=== PATIENT | female | born 1985 | race Caucasian/White ===

== ENCOUNTER 2021-06-03 21:47 | Emergency (ER) | payer MEDICAID, SELFPAY ==
[2021-06-03 21:47] VITALS: BP 142/86; PULSE 85; RESP 16; TEMP 36.2; O2SAT 100; BMI 39.6
--- NOTE | 2021-06-03 22:02 | ED.VIS.LOWEX ---
HPI History of Present Illness Chief Complaint: Lower Extremity Injury Informant: patient Narrative Narrative: Patient had a mechanical trip and fall yesterday. Her known left knee has been sore since. She is able to walk on it. Bending it and pressing makes it worse and rest makes it better. She denies any other injury. No injury to the ankle or hip area. She did not hit her head or lose consciousness. She is not on any anticoagulation. [facility] Medical History Anxiety Home Medications buspirone [BuSpar] 15 mg PO BID 06/03/21 [History Last Taken Unknown] cetirizine [Zyrtec] 10 mg PO DAILY 06/03/21 [History Last Taken Unknown] ferrous gluconate 324 mg PO BID 06/03/21 [History Last Taken Unknown] bm-mm-ughn-FA-Ca carb-vit K [Women's Multivitamin] 1 tab PO DAILY 06/03/21 [History Last Taken Unknown] sertraline [Zoloft] 200 mg PO DAILY 06/03/21 [History Last Taken Unknown] Allergy/AdvReac Type Severity Reaction Status Date / Time aspirin Allergy NEEDS Verified 06/03/21 21:49 FOLLOW-UP Penicillins [PCN] Allergy NEEDS Verified 06/03/21 21:49 FOLLOW-UP Sulfa (Sulfonamide Allergy NEEDS Verified 06/03/21 21:49 Antibiotics) FOLLOW-UP Social History Smoking Status: Never smoker [facility] ED Gastrointestinal Gastrointestinal: Denies nausea or vomiting Musculoskeletal Musculoskeletal: Reports other Details: See history of present illness ; Denies back pain or neck pain Integumentary Reports Abrasions and other Details: Very slight abrasion to the skin on the left anterior knee. Neurologic Neurologic: Denies headache(s), paresthesias or weakness Hematologic/Lymphatic Hematologic/Lymphatic: Denies easy bleeding or easy bruising EXAM Physical Exam Const Vital Signs: 06/03/21 21:47 Temperature 97.2 F L Temperature Source Temporal Pulse Rate 85 Respiratory Rate 16 Blood Pressure 142/86 H Blood Pressure Mean 104 Pulse Ox 100 Oxygen Delivery Method Room Air Patient sitting quietly on the bed. She looks comfortable. Positive well nourished, well developed and obese General Appearance ED: well developed and NAD Nutritional Appearance: obese HEENT normocephalic and atraumatic Extremity Extremity Narrative: Slight superficial abrasion to the skin in the left anterior knee. There is no effusion. Extensor mechanism is intact. No tenderness of the foot ankle or lower leg. She does have some mild tenderness mostly abdomen just above the patella. No significant medial or lateral joint line tenderness. Flexion causes some discomfort but she is able to flex up to at least 90 degrees. Extension is normal. No tenderness higher up the left thigh or hip. Neuro Sensorium / Orientation: alert; Negative for confused or lethargic Psych mental status grossly normal Skin Skin Narrative: Slight abrasion to the left anterior knee. MDM MDM MDM Narrative Medical decision making narrative: 4 view x-ray of the patient's left knee read by me at 2220 shows no sign of acute fracture. No notable effusion. There is a fabella which is a chronic finding. There is mild subchondral sclerosis mostly of the medial compartment indicative of some early arthritis. Patient will use rest ice elevation. [id number] meds are appropriate. Discharge Plan Triage Chief Complaint: Lower Extremity Injury ED Provider: Ambrosio Robison Dx/Rx/DC Orders Clinical Impression: Fall from slipping, Contusion of left knee, Abrasion of left knee Instructions: ED Knee Sprain Prescriptions: No Action sertraline [Zoloft] 100 mg Tablet 200 mg PO DAILY RF: 0 buspirone [BuSpar] 15 mg Tablet 15 mg PO BID RF: 0 ferrous gluconate 324 mg (36 mg iron) Tablet 324 mg PO BID RF: 0 Zyrtec 10 mg Capsule 10 mg PO DAILY RF: 0 Women's Multivitamin 18 mg iron-400 mcg-500 mg Tablet 1 tab PO DAILY RF: 0 Primary Care Provider: Jessica Singh NP Referrals: Jessica Singh NP, TEACHER OF [employer]IRED-[employer] [Primary Care Provider] - 1 Week if not improving Disposition Disposition: Home, Self Care
--- NOTE | 2021-06-03 22:10 | RAD_ITS ---
STUDY: X-RAY - LEFT KNEE REASON FOR EXAM: Female, 35 years old. Pain after trauma. TECHNIQUE: 3 view(s) of the knee. COMPARISON: None. FINDINGS: No visible fracture. No osseous destruction. Alignment anatomic. No significant degenerative changes. Soft tissues unremarkable. RAD/Knee 4 or More Views IMPRESSION: No acute osseous abnormality. Electronically Signed: Jaxon Bailey MD at 0:30 EST Tel , Service support ,
== END 2021-06-03 22:49 | disposition home or self-care (01) ==
PROVIDERS: Emergency Provider Emergency Medicine; PCP Registered Nurse
DX: S80.02XA Contusion of left knee, initial encounter (principal); W01.0XXA Fall on same level from slipping, tripping and stumbling without subsequent striking against object, initial encounter; Y93.9 Activity, unspecified; Y92.9 Unspecified place or not applicable; Y99.9 Unspecified external cause status; F41.9 Anxiety disorder, unspecified; E66.9 Obesity, unspecified; Z79.899 Other long term (current) drug therapy
CPT/HCPCS: 73564; 99282

== ENCOUNTER 2021-12-18 20:01 | Emergency (ER) | payer MEDICAID, SELFPAY ==
[2021-12-18 20:02] VITALS: BP 125/80; PULSE 94; RESP 18; TEMP 36.5; O2SAT 95; BMI 39.2
--- NOTE | 2021-12-18 20:12 | EDS_ITS ---
HPI History of Present Illness Chief Complaint: Sore Throat Informant: patient Onset/Context/Timing Onset: Yesterday Context: Gradual Onset Current Severity: Mild Maximum Severity: Mild Narrative Narrative: Patient presents with sore throat difficulty swallowing. She states she has pain down over the anterior neck and feels like she has trouble swallowing and getting food down. She has not had any choking or coughing. No fever or chills. She went to urgent care. Rapid strep test was negative. She was sent to the ER for further evaluation. Patient is currently 5 weeks . [facility] Medical History Anxiety Home Medications buspirone [BuSpar] 15 mg PO BID 06/03/21 [History Last Taken Unknown] cetirizine [Zyrtec] 10 mg PO DAILY 06/03/21 [History Last Taken Unknown] ferrous gluconate 324 mg PO BID 06/03/21 [History Last Taken Unknown] zq-mz-nmib-FA-Ca carb-vit K [Women's Multivitamin] 1 tab PO DAILY 06/03/21 [History Last Taken Unknown] sertraline [Zoloft] 200 mg PO DAILY 06/03/21 [History Last Taken Unknown] ondansetron 4 mg PO Q8H PRN #10 tab 12/18/21 [Rx Last Taken Unknown] prednisone 40 mg PO DAILY #8 tab 12/18/21 [Rx Last Taken Unknown] Allergy/AdvReac Type Severity Reaction Status Date / Time aspirin Allergy NEEDS Verified 12/18/21 20:04 FOLLOW-UP Penicillins [PCN] Allergy NEEDS Verified 12/18/21 20:04 FOLLOW-UP Sulfa (Sulfonamide Allergy NEEDS Verified 12/18/21 20:04 Antibiotics) FOLLOW-UP Social History Smoking Status: Never smoker ROS ROS ED Constitutional Constitutional ED: Denies chills or fever(s) Eyes Eyes: Denies change in vision ENT ENT ED: Reports sore throat Cardiovascular Cardiovascular: Denies chest pain Respiratory/Chest Respiratory/Chest: Denies cough or dyspnea Gastrointestinal Gastrointestinal: Reports nausea; Denies abdominal pain or vomiting Genitourinary Genitourinary ED: Denies dysuria Musculoskeletal Musculoskeletal: Denies back pain Integumentary Denies rash Neurologic Neurologic: Denies headache(s) or weakness Allergic/Immunologic Allergic/Immunologic ED: Denies urticaria EXAM Physical Exam Narrative Exam Narrative: Patient lying back in bed with head elevated approximately 60 degrees. She is speaking with a strong voice and is tolerating secretions well. Const Vital Signs: 12/18/21 20:02 Temperature 97.7 F L Temperature Source Temporal Pulse Rate 94 Respiratory Rate 18 Blood Pressure 125/80 H Blood Pressure Mean 95 Pulse Ox 95 Oxygen Delivery Method Room Air Positive well nourished and well developed General Appearance ED: well developed HEENT Reports TM's clear and moist mucous membranes HEENT Narrative: Posterior pharynx exam is normal. Uvula midline. Tympanic Membrane ED: Yes TM's clear Eyes PERRL and EOMs intact bilaterally Neck supple Neck Narrative: Mild right anterior cervical lymphadenopathy. Chest Wall inspection of chest normal and palpation of chest normal Resp normal respiratory effort and clear to auscultation bilaterally Cardio regular rate and regular rhythm GI non-tender Palpation: soft Back/Spine no CVA tenderness Extremity normal to inspection Neuro oriented x3 Sensorium / Orientation: alert Motor Exam: strength 5/5 throughout Psych mental status grossly normal Skin no rashes or lesions noted MDM MDM MDM Narrative Medical decision making narrative: Soft tissue neck x-ray obtained. Radiography Diagnostic Testing: Clinical Impression(s) from Imaging Studies Soft Tissue Neck X-Ray 12/18/21 20:30 IMPRESSION: No suspicious findings. Electronically Signed: Ludy Montez MD at 21:19 EDT Reading Location ID and State: [facility] / [place] Tel , Service support , Treatment and Re-Evaluation Narrative: Neck x-ray per my interpretation reveals no acute abnormalities. Radiology interpretation is reviewed and agrees. Patient has had vomiting with . I wonder if she may have a small tear or irritation from the forceful vomiting. I will give her a short course of steroids to help calm down the inflammation. I will also give her some Zofran. She is to follow-up with her doctor in the next 5 to 7 days if not improving. Discharge Plan Triage Chief Complaint: Sore Throat ED Provider: Dee Murphy Dx/Rx/DC Orders Clinical Impression: Pharyngitis Instructions: Self-Care for Sore Throats Prescriptions: New ondansetron 4 mg tablet,disintegrating 4 mg PO Q8H PRN (Reason: nausea and vomiting) Qty: 10 RF: 0 prednisone 20 mg tablet 40 mg PO DAILY Qty: 8 RF: 0 No Action sertraline [Zoloft] 100 mg Tablet 200 mg PO DAILY RF: 0 buspirone [BuSpar] 15 mg Tablet 15 mg PO BID RF: 0 ferrous gluconate 324 mg (36 mg iron) Tablet 324 mg PO BID RF: 0 Zyrtec 10 mg Capsule 10 mg PO DAILY RF: 0 Women's Multivitamin 18 mg iron-400 mcg-500 mg Tablet 1 tab PO DAILY RF: 0 Primary Care Provider: Jessica Singh NP Referrals: Jessica Singh NP, [employer]-[facility] [Primary Care Provider] - 5-7 Days Disposition Disposition: Home, Self Care
--- NOTE | 2021-12-18 20:30 | RAD_ITS ---
EXAM: XR SOFT TISSUE NECK CLINICAL INDICATION: difficulty swallowing TECHNIQUE: Frontal and lateral views of the soft tissues of the neck. This report was created using [employer] report generation technology. COMPARISON: None. FINDINGS: AIRWAY: Unremarkable. Grossly patent. SOFT TISSUES: Unremarkable. No radiopaque foreign body. No pathologic thickening or enlargement of the epiglottis. RAD/Neck for Soft Tissue IMPRESSION: No suspicious findings. Electronically Signed: Ludy Montez MD at 21:19 EDT ,
[2021-12-18] MEDS: Ondansetron ODT 4 MG Tablet PO (21:32)
[2021-12-18] MEDS: predniSONE 20 MG Tablet 40 MG PO (21:32)
== END 2021-12-18 21:34 | disposition home or self-care (01) ==
PROVIDERS: Emergency Provider Emergency Medicine; PCP Registered Nurse; Visit Provider Emergency Medicine
DX: O99.511 Diseases of the respiratory system complicating pregnancy, first trimester (principal); J02.9 Acute pharyngitis, unspecified; O09.511 Supervision of elderly primigravida, first trimester; Z3A.01 Less than 8 weeks gestation of pregnancy; Z79.899 Other long term (current) drug therapy
CPT/HCPCS: 70360; 99283

== ENCOUNTER 2022-05-25 12:57 | Emergency (ER) | payer MEDICAID, SELFPAY ==
[2022-05-25 12:58] VITALS: BP 131/78; PULSE 105; RESP 15; TEMP 36.2; O2SAT 99; BMI 45.5
--- NOTE | 2022-05-25 15:36 | VDLE_ITS ---
Reason For Study: RLE PAIN RIGHT GSV is normal. CFV is compressible, spontaneous, phasic, competent and demonstrates normal augmentation. FV is compressible, spontaneous, phasic, competent and demonstrates normal augmentation. POP V is compressible, spontaneous, phasic, competent and demonstrates normal augmentation. T/P Trunk is compressible. PTV is compressible. RT PerV is compressible. Procedure This is a venous duplex using B-mode, color flow and spectral Doppler. Exam performed portable in ED. A preliminary report was called and/or faxed to ED. VL/Venous Duplex US, Unilateral Interpretation Summary There is no evidence of right lower extremity deep vein thrombosis. Right great saphenous vein appears patent and compressible segmentally. Ordering Physician: Ambrosio Robison Referring Physician: Jessica Singh Performed By: Emily Burns, RDCS, RVT
--- NOTE | 2022-05-25 15:37 | ED.VIS.LOWEX ---
HPI History of Present Illness Chief Complaint: Lower Extremity Injury Informant: patient Narrative Narrative: Patient was walking in her driveway on Wednesday. She felt a pop in the back of her calf. The pain is now at the proximal posterior calf. It is mostly painful when she tries to put weight or stretch her foot into a dorsiflexion type position. She is able to bear weight though. She never fell to the ground. She did not twist her foot or ankle. She did not stepped into a hole or off an edge. Patient denies any recent steroid use. Reviewing her chart I see she was last on steroids in December. She has not been on any antibiotics/fluoroquinolones. She is currently 28 weeks though. She is not having any issues with the today. [facility] Medical History Anxiety Home Medications buspirone 15 mg tablet 15 mg PO BID 06/03/21 [History Last Taken Unknown] cetirizine 10 mg capsule (Zyrtec) 10 mg PO DAILY 06/03/21 [History Last Taken Unknown] hlytymcc-hag-rvxg-FA-Ca carb-vit K 18 mg iron-400 mcg-500 mg tablet 1 tab PO DAILY 06/03/21 [History Last Taken Unknown] Allergy/AdvReac Type Severity Reaction Status Date / Time aspirin Allergy NEEDS Verified 05/25/22 12:58 FOLLOW-UP Penicillins [PCN] Allergy NEEDS Verified 05/25/22 12:58 FOLLOW-UP Sulfa (Sulfonamide Allergy NEEDS Verified 05/25/22 12:58 Antibiotics) FOLLOW-UP Social History Smoking Status: Never smoker ROS ROS ED Constitutional Constitutional ED: Denies fever(s) or sweats ENT ENT ED: Denies rhinorrhea Cardiovascular Cardiovascular: Denies chest pain or palpitations Respiratory/Chest Respiratory/Chest: Denies cough or dyspnea Gastrointestinal Gastrointestinal: Denies nausea or vomiting Musculoskeletal Musculoskeletal: Reports other Details: See history of present illness. ; Denies back pain or neck pain Integumentary Denies abscess, Abrasions or rash Neurologic Neurologic: Denies paresthesias or weakness Hematologic/Lymphatic Hematologic/Lymphatic: Denies easy bleeding, easy bruising or lymphadenopathy Allergic/Immunologic Allergic/Immunologic ED: Denies urticaria EXAM Physical Exam Const Vital Signs: 05/25/22 12:58 Temperature 97.1 F L Temperature Source Temporal Pulse Rate 105 H Respiratory Rate 15 Blood Pressure 131/78 H Blood Pressure Mean 95 Pulse Ox 99 Oxygen Delivery Method Room Air Positive well nourished and well developed General Appearance ED: well developed and NAD HEENT atraumatic Resp normal respiratory effort Back/Spine Lumbar Spine / Lower Back: Negative for lumbar spinal tenderness Extremity normal to inspection Extremity Narrative: No visible swelling bruising erythema or rash. Achilles is intact by both palpation and [place] test. There is some mild tenderness in that area. However she is mostly tender at the proximal aspect of the right posterior calf. No edema. Distal pulses sensation are all normal. There is no pain with knee motion and no effusion. There is no asymmetry between the legs. Neuro no sensory deficits noted Sensorium / Orientation: alert Motor Exam: strength 5/5 throughout Skin no wounds Lesions: No no lesions Rashes: No no rashes MDM MDM MDM Narrative Medical decision making narrative: Ultrasound is negative for DVT. Clinically, I am wondering if she had a plantaris tendon rupture. I explained what this is and expected course. We also discussed that with any further pain, swelling or other symptoms she may need repeat ultrasounds as DVTs can develop. She is comfortable going home. She will use ice or rest for pain. Her physician told her she can take Tylenol if needed. Radiography Diagnostic Testing: Ultrasound shows no sign of acute DVT. Discharge Plan Triage Chief Complaint: Lower Extremity Injury ED Provider: Ambrosio Robison Dx/Rx/DC Orders Clinical Impression: Rupture of plantaris tendon Instructions: ED Muscle Strain, Extremity Prescriptions: No Action buspirone [BuSpar] 15 mg Tablet 15 mg PO BID Zyrtec 10 mg Capsule 10 mg PO DAILY Women's Multivitamin 18 mg iron-400 mcg-500 mg Tablet 1 tab PO DAILY Primary Care Provider: Jessica Singh NP Referrals: Jessica Singh HANDICRAFT OR HOBBY SHOP MANAGER, HANDICRAFT OR HOBBY SHOP MANAGER-C [Primary Care Provider] - 1 Week if not improving Disposition Disposition: Home, Self Care
[2022-05-25 16:35] VITALS: BP 131/76; PULSE 93; RESP 14; O2SAT 99
== END 2022-05-25 16:39 | disposition home or self-care (01) ==
PROVIDERS: Emergency Provider Emergency Medicine; PCP Registered Nurse; Visit Provider Emergency Medicine
DX: O9A.213 Injury, poisoning and certain other consequences of external causes complicating pregnancy, third trimester (principal); S86.111A Strain of other muscle(s) and tendon(s) of posterior muscle group at lower leg level, right leg, initial encounter; X58.XXXA Exposure to other specified factors, initial encounter; Y93.01 Activity, walking, marching and hiking; Y92.008 Other place in unspecified non-institutional (private) residence as the place of occurrence of the external cause; O09.513 Supervision of elderly primigravida, third trimester; O99.343 Other mental disorders complicating pregnancy, third trimester; F41.9 Anxiety disorder, unspecified; Z3A.28 28 weeks gestation of pregnancy; Z79.899 Other long term (current) drug therapy
CPT/HCPCS: 93971; 99282

== ENCOUNTER 2022-07-31 11:50 | Inpatient (IN) | payer MEDICAID, SELFPAY ==
[2022-07-31] VITALS (28 sets, daily range): BP systolic 114–193; BP diastolic 58–91; PULSE 65–93; TEMP 36–36.1; O2SAT 97–99; BMI 45.5
--- NOTE | 2022-07-31 12:07 | PCM.HP.OB ---
HPI - General General Date of Admission: 07/31/22 Date of Service: 07/31/22 Chief Complaint: SROM HPI Narrative REMEDIOS GRIMALDO, is a 37 F at 37w3d who presents with SROM. Cvx 2 cm dilated in office at appointment today and after membrane sweep had LOF and grossly ruptured in office per Dr. Dorado. No regular ctx. No vb. complicated by obesity and AMA. PFSH PFS Medical History Anxiety Home Medications buspirone 15 mg tablet 15 mg PO BID 06/03/21 [History Last Taken Unknown] cetirizine 10 mg capsule (Zyrtec) 10 mg PO DAILY 06/03/21 [History Last Taken Unknown] qpyftawx-oxi-kdic-FA-Ca carb-vit K 18 mg iron-400 mcg-500 mg tablet 1 tab PO DAILY 06/03/21 [History Last Taken Unknown] Allergy/AdvReac Type Severity Reaction Status Date / Time aspirin Allergy NEEDS Verified 05/25/22 12:58 FOLLOW-UP Penicillins [PCN] Allergy NEEDS Verified 05/25/22 12:58 FOLLOW-UP Sulfa (Sulfonamide Allergy NEEDS Verified 05/25/22 12:58 Antibiotics) FOLLOW-UP Social History Smoking Status: Never smoker Physical Exam Const alert and no apparent distress General Appearance: comfortable Labs Labs Labs: No Data to Display Assessment & Plan (1) 37 weeks gestation of : PLAN: Admit for routine intrapartum care. GBS neg. Start pit per protocol. Epidural PRN. Expected EFW < 4500 g and pelvis adequate. Anticipate vaginal delivery. (2) SROM (spontaneous rupture of membranes): (3) Obesity affecting : (4) Advanced maternal age (AMA) in :
[2022-07-31] MEDS: Lactated Ringers 1,000 ML 50 ML IV (14:50)
[2022-07-31 15:06] LABS: Absolute Lymphocyte Count 1.35 X10^3/uL (0.83-4.51); Absolute Neutrophil Count 7.8 X10^3/uL (2.0-7.7); Basophil# 0.02 X10^3/uL; Basophil% 0.2 % (0-1); Eosinophil# 0.04 X10^3/uL; Eosinophils% 0.4 % (0-5); Hematocrit 35.7 % (37-47); Lymphocyte # 1.35 X10^3/ul (0.83-4.51); Lymphocyte % 13.5 % (19-41); Mean Corp Hgb Conc 33.6 g/dL (32-36); Mean Corpuscular Hgb 28.4 pg (27.0-32.0); Mean Corpuscular Volume 84.4 fL (81-99); Monocyte# 0.71 X10^3/uL; Monocyte% 7.1 % (0-10); NRBC Flagged by Analyzer 0 % (0-5); Neutrophil % 77.9 % (47-70); Platelet Count 315 K/mm3 (150-450); RBC Distribution Width CV 13.2 % (11.6-14.6); RBC Distribution Width SD 40.5 fl (35.1-43.9); Red Blood Count 4.23 M/mm3 (4.2-5.4)
[2022-07-31] MEDS: Oxytocin 15 Units/NS 250ml 15 UNITS/250 ML IV.SOLN 2 UNITS IV (15:15)
[2022-07-31] MEDS: LACTATED RINGERS 500 ML 999 ML IV (19:27)
[2022-07-31] MEDS: fentaNYL-bupivacaine (epidural) 100 ML BAG EPIDURAL (20:40)
[2022-07-31] MEDS: Lactated Ringers 1,000 ML 200 ML IV (21:24)
[2022-08-01] VITALS (25 sets, daily range): BP systolic 90–135; BP diastolic 45–77; PULSE 70–104; RESP 12–18; TEMP 36–37.1; O2SAT 92–98
[2022-08-01] MEDS: 0.9% Saline Lock 10 ML Syringe IV ×3 (00:38→05:46)
[2022-08-01] MEDS: fentaNYL-bupivacaine (epidural) 100 ML BAG EPIDURAL ×2 (00:43→05:45)
[2022-08-01] MEDS: Lactated Ringers 1,000 ML 200 ML IV (02:24)
[2022-08-01] MEDS: Ondansetron 4 MG/2 ML Vial IV (04:18)
--- NOTE | 2022-08-01 07:04 | PN_ITS ---
Progress Note Pt comfortable with epidural. She offers no complaints at this time. Assessment & Plan Assessment/Plan (1) 37 weeks gestation of : PLAN: Patient was 10/100/0 and pushing with RN for 2 hours who has had the patient push in multiple different positions. I was called given concern for narrow pelvis and minimal progress. At bedside to assess. Infant in SJ with caput. I pushed with the patient for 1 hour. After a total of 3 hours of pushing, no change in descent noted and pubic arch felt to be narrow with pushing. We tried several additional position changes with pushing, as well as perineal massage with inability to achieve progress. Discussed with patient c oncern for arrest of descent and CPD. Recommend section and discussed r/b/a. Patient desires to proceed with a section. (2) SROM (spontaneous rupture of membranes): (3) Obesity affecting : (4) Advanced maternal age (AMA) in :
[2022-08-01] MEDS: Acetaminophen 500 MG Tablet PO (07:18)
[2022-08-01] MEDS: Sodium Citrate/Citric Acid 30 ML UDC PO (07:20)
[2022-08-01] MEDS: Oxytocin 15 Units/NS 250ml 15 UNITS/250 ML IV.SOLN 83 UNITS IV (09:35)
--- NOTE | 2022-08-01 09:35 | PCM.OPRPT ---
Problems Associated Problem List Diagnoses (1) 37 weeks gestation of : (2) SROM (spontaneous rupture of membranes): (3) Obesity affecting : (4) Advanced maternal age (AMA) in : (5) CPD (cephalo-pelvic disproportion): (6) Arrest of descent, delivered, current hospitalization: (7) Delivery by section: Report of Operation Date of Procedure: 08/01/22 Pre-Operative Diagnosis: 37 week gestation, CPD, arrest of descent, SROM, single viable IUP Post-Operative Diagnosis: As above Surgery/Procedure Performed:: Primary low transverse section Via Pfannenstiel incision Description of Surgical Findings:: Narrow pelvis. Infant in left occiput anterior position with a weight of 7 pounds 2 ounces. Apgars 3 and 8. Normal-appearing uterus and bilateral adnexa. Normal-appearing placenta. Surgeon: Trudy De La Cruz manager university: Zaria ABERNATHY manager university: Juliet Lau Type of Anesthesia: Epidural Special Medications: None Specimen's removed: Placenta Drains: Ferrell Estimated Blood Loss (mL): 800 Fluids Replaced: See anesthesia record Description of Procedure: Indications: Patient presented with SROM at 37-week gestation. Pitocin per protocol was started and patient progressed to complete. She was complete and pushing for 3 hours, and a narrow pelvis was noted with no change in station. A section was recommended for suspected CPD and arrest of descent. Procedure: Patient was taken to the operating room where epidural anesthesia was found to be adequate. She was prepped and draped in the dorsal position with a leftward tilt. A Pfannenstiel skin incision was made using a scalpel and this was carried down to the underlying layer of fascia. The fascia was incised in the midline and extended bluntly. The rectus muscles were in the midline. The peritoneum was entered bluntly with good visualization of the bladder, the peritoneal incision was extended bluntly as well. The bladder blade was inserted. A low transverse incision was made on the uterus with a scalpel and extended bluntly with traction both cephalad and caudad. The patient's pelvis was felt to be narrow and the head of the was attempted to be elevated out of the pelvis in a flexed position. Nursing staff then provided gentle pressure vaginally from below in an attempt to disimpact the head. The head was still unable to be elevated out of the pelvis. At this point bandage scissors were used to cut down along the lower uterine segment in the midline, making a 3 cm cut down the lower uterine segment with good visualization of the bladder which was far away from the incision. This provided enough space to be able to elevate the head out of the pelvis in a flexed position. The head was delivered followed by the rest of the body without any force, delay, or traction. The cord was clamped and cut immediately and the infant was handed off to the awaiting nursery staff. The placenta was removed with manual extraction. Cord gases were sent. The uterus was exteriorized. The uterus was cleared of all clot and debris. The lower uterine segment extension was closed in a 2 layer fashion. The first was a running locked layer using 1-0 Vicryl. The second was an imbricating layer to close the serosa. The low transverse incision was then closed with 1-0 Vicryl in a running locked fashion. Hemostasis was noted. The uterus was then inspected and the left broad ligament was noted to be torn, with an anterior serosal defect on the left side of the uterus that were minimal bleeding. 1-0 Vicryl and 3-0 Vicryl were used to close the anterior serosal defect for hemostasis initially. At this point Dr. Lau was called for assistance with closure of the broad ligament tear. 3-0 Vicryl was used to reapproximate and close the left broad ligament. Using 1-0 Vicryl an [place] stitch was placed along the left broad ligament. Hemostasis was noted. Uterus was placed back in to the abdomen. Hemostasis was then again noted. The peritoneum was closed with 3-0 Vicryl in a running fashion. The rectus muscles were noted to be hemostatic. Fascia was closed with strata fix in a running fashion. Subcutaneous space was irrigated and made hemostatic with Bovie cautery. Subcutaneous space was reapproximated with 3-0 Vicryl. The skin was closed with 4-0 Monocryl in a subcuticular fashion. Silver dressing was placed. Instrument, sponge, sharp counts were correct. The patient was taken to the recovery room in stable condition. Service Advisor Zaria ABERNATHY was present to assist with draping the patient, delivery of the infant, and closure of the uterus. Dr. Lau was then present for closure of the tear through the broad ligament, and the remaining closure after that. Grafts/Implants Used: None Procedure Start Time: 07:29 Procedure Stop Time: 09:11 Complications None Admit VTE Documentation VTE Present on Admission: No VTE Mechan Device Prophylaxis: SCD's
[2022-08-01] MEDS: Ketorolac 30 MG/ML Syringe IV ×3 (10:14→23:28)
--- NOTE | 2022-08-01 11:29 | NURSING ---
unable to obtain ABG. no arterial blood noted in cord. Dr. De La Cruz aware.
--- NOTE | 2022-08-01 13:10 | PCM.PN.BLA ---
Progress Note At bedside to check on pt. She is doing well. Feeling sore. Denies lightheadedness, dizziness, CP, SOB. Lochia normal. She is fatigued. Having some pain but it is controlled. Physical Exam Const alert and no apparent distress Constitutional Narrative: Working on with RN at bedside General Appearance: comfortable Assessment & Plan Assessment/Plan (1) Delivery by section: PLAN: Doing well post op. Continue routine care.
[2022-08-01] MEDS: Lactated Ringers 1,000 ML 100 ML IV (14:29)
[2022-08-01] MEDS: Sertraline 50 MG Tablet PO (14:29)
[2022-08-01] MEDS: busPIRone 15 MG TABLET PO ×2 (14:30→22:22)
[2022-08-01] MEDS: Acetaminophen 500 MG Tablet 1000 MG PO ×2 (14:30→20:21)
[2022-08-01] MEDS: Enoxaparin 40 MG/0.4 ML Syringe SC (20:21)
[2022-08-02] VITALS (7 sets, daily range): BP systolic 103–141; BP diastolic 45–71; PULSE 83–104; RESP 14–16; TEMP 36.3–37; O2SAT 97–99
[2022-08-02] MEDS: Lactated Ringers 1,000 ML 100 ML IV ×2 (00:18→09:10)
--- NOTE | 2022-08-02 00:35 | NURSING ---
report received from Pravin WHALEN. Pt was not up to ambulate 8 hours post op, this RN was told that pt was too painful with the repairs she had in her to move. This RN got pt up and ambulating. Urine is dark yellow in valdes catheter bag, LR is continuing at 100 mL/hr.
[2022-08-02] MEDS: Acetaminophen 500 MG Tablet 1000 MG PO ×4 (02:56→22:00)
--- NOTE | 2022-08-02 04:34 | PCM.PN.OB ---
Subjective Subjective Patient doing well. She states she is sore when moving around but pain has been well controlled. Ferrell still in place and urine is clearing but still concentrated. She is tolerating p.o. without nausea or vomiting. She denies any lightheadedness or dizziness. She denies chest pain, shortness of breath, leg pain. Lochia has been normal. She desires to stay another night. Objective Data Objective Data Vital Signs: Vital Signs Temp Pulse Resp BP Pulse Ox O2 Del Method 98.2 F 97 16 106/55 L 98 Room Air 08/02/22 04:11 08/02/22 04:11 08/02/22 04:11 08/02/22 04:11 08/02/22 04:11 08/02/22 04:11 Oxygen Delivery Method Room Air Weight: 273 lb 5.971 oz Body Mass Index (BMI) 45.5 Intake & Output: Intake and Output for Last 24 Hours 07/31/22 08/01/22 08/02/22 23:59 23:59 23:59 Intake Total 1549.97 / 1549.97 2747.41 / 2747.41 981.67 / 981.67 Output Total 50 / 50 2024 / 2024 Balance 1499.97 / 1499.97 722.41 / 722.41 981.67 / 981.67 Lab / Micro Data Result Diagrams: 07/31/22 14:50 Physical Exam Const alert and no apparent distress General Appearance: comfortable HEENT normocephalic GI soft to palpation and non-distended GI Narrative: ATTP, non acute, silver dressing intact Assessment & Plan (1) Delivery by section: PLAN: POD#1 s/p PLTCS for arrest of descent. BP's low but pt has no symptoms of anemia, exam is non acute, and UOP adequate. Urine remains concentrated. Check CBC this AM. Cont IVF hydration given poor oral fluid intake. Encouraged her to push fluids. Routine post op care. Possible discharge tomorrow. (2) Obesity affecting :
[2022-08-02 04:41] LABS: Hematocrit 27.2 % (37-47); Mean Corp Hgb Conc 33.1 g/dL (32-36); Mean Corpuscular Hgb 28.6 pg (27.0-32.0); Mean Corpuscular Volume 86.3 fL (81-99); Platelet Count 204 K/mm3 (150-450); RBC Distribution Width CV 13.4 % (11.6-14.6); RBC Distribution Width SD 41.8 fl (35.1-43.9); Red Blood Count 3.15 M/mm3 (4.2-5.4); White Blood Count 14.4 K/mm3 (4.4-11.0)
[2022-08-02] MEDS: Ketorolac 30 MG/ML Syringe IV (06:27)
--- NOTE | 2022-08-02 08:10 | NURSING ---
This RN spoke to physician about pt blood pressure running low. Physician at bedside around 0400 to assess and round on pt. Ferrell catheter bag contained dark, gregorio colored urine. This RN collected CBC and encourage more oral fluids to be consumed.
--- NOTE | 2022-08-02 08:16 | NURSING ---
report given to Pravin WHALEN, that RN assumed care at 0700
[2022-08-02] MEDS: Senna/Docusate Sodium 1 Tablet PO ×2 (09:08→16:06)
[2022-08-02] MEDS: Sertraline 50 MG Tablet PO (09:09)
[2022-08-02] MEDS: busPIRone 15 MG TABLET PO ×2 (09:09→22:00)
[2022-08-02] MEDS: Enoxaparin 40 MG/0.4 ML Syringe SC ×2 (09:10→21:59)
[2022-08-02] MEDS: Ibuprofen 600 MG Tablet PO ×2 (13:11→19:03)
[2022-08-02] MEDS: oxyCODONE 5 MG Tablet PO (23:05)
[2022-08-03] MEDS: Ibuprofen 600 MG Tablet PO ×3 (01:27→13:21)
[2022-08-03 01:31] VITALS: BP 105/61; PULSE 93; RESP 16; TEMP 36.6; O2SAT 97
[2022-08-03] MEDS: Acetaminophen 500 MG Tablet 1000 MG PO ×3 (04:07→16:07)
[2022-08-03 09:37] VITALS: BP 126/79; PULSE 81; RESP 16; TEMP 36.5; O2SAT 100
[2022-08-03] MEDS: busPIRone 15 MG TABLET PO (10:30)
[2022-08-03] MEDS: Senna/Docusate Sodium 1 Tablet PO (10:31)
[2022-08-03] MEDS: Enoxaparin 40 MG/0.4 ML Syringe SC (10:31)
[2022-08-03 14:12] VITALS: BP 126/78; PULSE 88; RESP 16; TEMP 36.8; O2SAT 98
--- NOTE | 2022-08-03 14:21 | PN.OBGYN_ITS ---
Subjective Subjective Doing well per patient and nursing staff. Ambulating and taking PO without difficulty. Voiding and passing flatus. Pain controlled. , services for assistance. Denies headache, visual changes, chest pain, shortness of breath, leg pain or increased bleeding. Lochia normal. Objective Data Objective Data Vital Signs: Vital Signs Temp Pulse Resp BP Pulse Ox O2 Del Method 98.2 F 88 16 126/78 H 98 Room Air 08/03/22 14:12 08/03/22 14:12 08/03/22 14:12 08/03/22 14:12 08/03/22 14:12 08/03/22 14:12 Oxygen Delivery Method Room Air Weight: 273 lb 5.971 oz Body Mass Index (BMI) 45.5 Intake & Output: Intake and Output for Last 24 Hours 08/01/22 08/02/22 08/03/22 23:59 23:59 23:59 Intake Total 2747.41 / 2747.41 3363.34 / 3363.34 Output Total 2024 / 2224 1100 / 1100 Balance 722.41 / 522.41 2263.34 / 2263.34 Lab / Micro Data Result Diagrams: 08/02/22 04:25 ROS Constitutional Constitutional: Reports systems reviewed and no addt'l complaints, except as documented; Denies headache(s) Eyes Eyes: Denies acute decrease in peripheral vision, blurry vision or change in vision ENT HEENT: Reports systems reviewed and no addt'l complaints, except as documented Cardiovascular Cardiovascular: Denies chest pain or dizziness Respiratory/Chest Respiratory/Chest: Denies cough, dyspnea, dyspnea on exertion, shortness of br eath at rest or shortness of breath with exertion Gastrointestinal Gastrointestinal: Denies abdominal pain, diarrhea, nausea or vomiting Genitourinary Genitourinary: Denies abdominal discomfort Musculoskeletal Musculoskeletal: Denies limited range of motion Integumentary Integumentary: Reports systems reviewed and no addt'l complaints, except as documented Neurologic Neurologic: Reports systems reviewed and no addt'l complaints, except as documented Psychiatric Psychiatric: Reports systems reviewed and no addt'l complaints, except as documented Endocrine Endocrinology: Reports systems reviewed and no addt'l complaints, except as documented Hematologic/Lymphatic Hematologic/Lymphatic: Reports systems reviewed and no addt'l complaints, except as documented Allergic/Immunologic Allergic/Immunologic: Reports systems reviewed and no addt'l complaints, except as documented Physical Exam Const alert and oriented x3 General Appearance: cooperative Orientation / Consciousness: awake, oriented to person, oriented to place and oriented to time Exam Limitations: no limitations HEENT normocephalic Head and Scalp: normal to inspection, normocephalic and atraumatic Face and Sinus: normal facial exam Eyes General Eye: normal appearance of both eyes Neck full ROM Chest Chest: symmetrical chest wall rise Resp normal respiratory effort and normal air movement Auscultation: clear to auscultation bilaterally Cardio regular rate, regular rhythm, S1 normal heart sound, S2 normal heart sound, no murmurs, no rub, no gallops and no clicks GI normal to inspection, nondistended, normoactive bowel sounds and non-tender appearance of the vagina normal Narrative: Dressing dry and intact. Bladder / Kidney Exam: no CVA tenderness Back/Spine normal ROM Extremity normal to inspection and full ROM Skin no rashes or lesions noted Neuro oriented x3, CN's II-XII intact bilaterally and moves all extremities Sensorium / Orientation: awake, alert and oriented to person Motor Exam: clonus absent Deep Tendon Reflexes: Rt Patellar (L4): 2+ and Lt Patellar (L4): 2+ Assessment & Plan (1) Delivery by section: (2) Arrest of descent, delivered, current hospitalization: (3) CPD (cephalo-pelvic disproportion): PLAN: Plan 1) Routine postoperative care 37 week gestation, CPD, arrest of descent, SROM, single viable IUP 2) Pain management 3) I&O, valdes out and urinating without difficulty 4) Vitals stable. Had elevated BP last night with pain, normal this am 5) Follow up in 1-2 weeks for incision check. 6 week PP visit 6) D/C home
--- NOTE | 2022-08-03 14:25 | DS.PCM_ITS ---
Providers Date of Admission: 07/31/22 Primary Care Physician: BRYON Guevara Reason For Visit: PRIMARY C SECTION Diagnosis Discharge Diagnosis (1) Delivery by section: Status: Acute (2) Arrest of descent, delivered, current hospitalization: Status: Acute Code(s): O62.1 - Secondary uterine inertia (3) CPD (cephalo-pelvic disproportion): Status: Acute Code(s): O33.9 - Maternal care for disproportion, unspecified Plan 1) Routine postoperative care 37 week gestation, CPD, arrest of descent, SROM, single viable IUP 2) Pain management 3) I&O, valdes out and urinating without difficulty 4) Vitals stable. Had elevated BP last night with pain, normal this am 5) Follow up in 1-2 weeks for incision check. 6 week PP visit 6) D/C home Medications at Discharge Home Medications buspirone 15 mg tablet 15 mg PO BID anxiety 06/03/21 loratadine 10 mg tablet (Claritin) 10 mg PO DAILY allergies 07/31/22 vit no.95-ferrous fumarate 28 mg-folic acid 800 mcg tablet () 1 tab PO DAILY pergnancy 07/31/22 sertraline 50 mg tablet 50 mg PO DAILY depression 07/31/22 acetaminophen 500 mg tablet 1,000 mg PO Q6H #0 tabs 08/03/22 ibuprofen 600 mg tablet 600 mg PO Q6 #0 tabs 08/03/22 oxycodone 5 mg tablet 5 mg PO Q4H PRN PRN Pain Score 4-10 7 days #10 tabs 08/03/22 Hospital Course Summary of Care Provided Hospital Course: Presented for ROM after membrane sweep in office. 37 week gestation, CPD, arrest of descent, SROM, single viable IUP. Discharge home on POD #2. Weight / BMI Weight Weight: 273 lb 5.971 oz Body Mass Index (BMI) 45.5 ABG / Lab / Microbiology Data Result Diagrams: 08/02/22 04:25 Meaningful Use Info Meaningful Use Diagnoses (Choose all that apply): None applicable Discharge Plan Admission Admit Date/Time: 07/31/22 11:50 Primary Reason for Your Visit: Section Attending Provider: Trudy De La Cruz Primary Care Provider: Jessica Singh NP Instructions Patient Instructions: After a Discharge Orders/Prescriptions Prescriptions: New acetaminophen 500 mg Tablet 1,000 mg PO Q6H Qty: 0 0RF ibuprofen 600 mg Tablet 600 mg PO Q6 Qty: 0 0RF oxycodone 5 mg Tablet 5 mg PO Q4H PRN PRN (Reason: Pain Score 4-10) 7 Days Qty: 10 0RF Continued buspirone 15 mg Tablet 15 mg PO BID sertraline 50 mg Tablet 50 mg PO DAILY loratadine [Claritin] 10 mg Tablet 10 mg PO DAILY PNV cmb#95-ferrous fumarate-FA [] 28 mg iron- 800 mcg Tablet 1 tab PO DAILY Referrals / Follow Up: Jessica Singh LOAN SERVICING OFFICER, LOAN SERVICING OFFICER-C [Primary Care Provider] - Disposition Disposition (needs filled in before D/C Order can be placed): Home, Self Care
[2022-08-03] MEDS: Sertraline 50 MG Tablet PO (16:08)
[2022-08-03] MEDS: oxyCODONE 5 MG Tablet PO (17:12)
== END 2022-08-03 17:40 | disposition home or self-care (01) | DRG 540 ==
PROVIDERS: Admitting Provider Obstetrics & Gynecology; PCP Registered Nurse; Visit Provider Obstetrics & Gynecology
DX: O65.4 Obstructed labor due to fetopelvic disproportion, unspecified (principal); E66.9 Obesity, unspecified; F41.9 Anxiety disorder, unspecified; O62.1 Secondary uterine inertia; O99.344 Other mental disorders complicating childbirth; O99.214 Obesity complicating childbirth; R03.0 Elevated blood-pressure reading, without diagnosis of hypertension; Z3A.37 37 weeks gestation of pregnancy; Z37.0 Single live birth; O64.8XX0 Obstructed labor due to other malposition and malpresentation, not applicable or unspecified; O71.6 Obstetric damage to pelvic joints and ligaments
CPT/HCPCS: 59025; 59050; 85025; 85027; 86850; 86900; 86901; 99221; J7120; A4216; G0378; J2405